=== PATIENT | male | born 1940 | race Caucasian/White ===

== ENCOUNTER 2017-04-14 06:12 | Inpatient (IN) | payer OTHER, MEDICARE ==
[2017-04-14] MEDS ORDERED: ONDANSETRON 4 MG/2 ML VIAL IVPUSH ONE (07:41)
[2017-04-14] MEDS ORDERED: SODIUM CHLORIDE 1,000 ML IV STA (07:41)
--- NOTE | 2017-04-14 07:41 | PDOC ---
History of Present Illness - General History Source: Patient Exam Limitations: No Limitations - History of Present Illness Initial Comments: 76 yo M no PMH presents with lower abdominal pain, multiple episodes of vomiting this morning. He states that he ate a burger last night, did not taste bad. No known sick contacts. Denies f/c, diarrhea. He has not had similar pain in the past. He has history of ruptured appendicitis, for which he had an appendectomy in the 1980s. No other surgeries. <Ingrid Conley - Last Filed: 04/14/17 19:53> <Little Yun - Last Filed: 04/14/17 20:20> - General Chief Complaint: Pain, Acute Stated Complaint: ABD PAIN, VOMITING Time Seen by Provider: 04/14/17 07:18 Past History - Surgical History Appendectomy: Yes - Psycho/Social/Smoking Cessation Hx Suicidal Ideation: No Smoking Status: No Smoking History: Never smoked Number of Cigarettes Smoked Daily: 0 <Ingrid Conley - Last Filed: 04/14/17 19:53> <Little Yun - Last Filed: 04/14/17 20:20> - Past Medical History Allergies/Adverse Reactions: Allergies Allergy/AdvReac Type Severity Reaction Status Date / Time No Known Allergies Allergy Verified 04/14/17 06:48 Home Medications: Ambulatory Orders No Home Medications 0 dose .ROUTE UTDICT 10/31/12 Levofloxacin [Levaquin] 750 mg PO DAILY #10 tablet 04/14/17 Metronidazole [Flagyl -] 500 mg PO TID #30 tablet 04/14/17 Ondansetron [Zofran -] 4 mg PO TID PRN #30 tablet 04/14/17 Review of Systems - Review of Systems Able to Perform ROS?: Yes Comments:: GENERAL/CONSTITUTIONAL: No fever or chills. No weakness. HEAD, EYES, EARS, NOSE AND THROAT: No change in vision. No ear pain or discharge. No sore throat. CARDIOVASCULAR: No chest pain or shortness of breath. RESPIRATORY: No cough, wheezing, or hemoptysis. GASTROINTESTINAL: No nausea, vomiting, diarrhea or constipation. GENITOURINARY: No dysuria, frequency, or change in urination. MUSCULOSKELETAL: No joint or muscle swelling or pain. No neck or back pain. SKIN: No rash NEUROLOGIC: No headache, vertigo, loss of consciousness, or change in strength/ sensation. ENDOCRINE: No increased thirst. No abnormal weight change. HEMATOLOGIC/LYMPHATIC: No anemia, easy bleeding, or history of blood clots. ALLERGIC/IMMUNOLOGIC: No hives or skin allergy. <Ingrid Conley - Last Filed: 04/14/17 19:53> *Physical Exam - Vital Signs Last Vital Signs Temp Pulse Resp BP Pulse Ox 98.1 F 71 22 160/93 100 04/14/17 06:49 04/14/17 06:49 04/14/17 06:49 04/14/17 06:49 04/14/17 06:49 - Physical Exam Comments: GENERAL: Awake, alert, and fully oriented, in no acute distress HEAD: No signs of trauma EYES: PERRLA, EOMI, sclera anicteric, conjunctiva clear ENT: Auricles normal inspection, hearing grossly normal, nares patent, oropharynx clear without exudates. Moist mucosa NECK: Normal ROM, supple, no lymphadenopathy, JVD, or masses LUNGS: Breath sounds equal, clear to auscultation bilaterally. No wheezes, and no crackles HEART: Regular rate and rhythm, normal S1 and S2, no murmurs, rubs or gallops ABDOMEN: Soft, minimal BLQ tenderness, normoactive bowel sounds. No guarding, no rebound. No masses EXTREMITIES: Normal range of motion, no edema. No clubbing or cyanosis. No cords, erythema, or tenderness NEUROLOGICAL: Cranial nerves II through XII grossly intact. Normal speech, normal gait SKIN: Warm, Dry, normal turgor, no rashes or lesions noted. <Ingrid Conley - Last Filed: 04/14/17 19:53> - Vital Signs Last Vital Signs Temp Pulse Resp BP Pulse Ox 98.1 F 71 22 160/93 100 04/14/17 06:49 04/14/17 06:49 04/14/17 06:49 04/14/17 06:49 04/14/17 06:49 <Little Yun - Last Filed: 04/14/17 20:20> ED Treatment Course - LABORATORY CBC & Chemistry Diagram: 04/14/17 08:08 04/14/17 08:08 <Ingrid Conley - Last Filed: 04/14/17 19:53> - LABORATORY CBC & Chemistry Diagram: 04/14/17 08:08 04/14/17 08:08 - ADDITIONAL ORDERS Additional order review: Laboratory Results 04/14/17 08:08 Sodium 142 Potassium 4.0 Chloride 102 Carbon Dioxide 30 Anion Gap 10 BUN 19 H Creatinine 1.1 Creat Clearance w eGFR > 60 Random Glucose 155 H Calcium 9.5 Total Bilirubin 0.7 AST 16 ALT 19 Alkaline Phosphatase 205 H Total Protein 7.4 Albumin 4.2 Lipase 78 04/14/17 08:08 RBC 5.40 MCV 82.7 MCHC 34.0 RDW 13.9 MPV 7.7 Neutrophils % 88.0 H Lymphocytes % 11.0 Basophils % 1.0 - RADIOLOGY Radiograph Interpretation: 04/14/17 12:35 EXAM: CT/ABDOMEN PELVIS CT WITH CONTR CT Interpreted by Dr. Roger Ochoa IMPRESSION: Acute diverticulitis, mild degree, involving distal descending colon with small amount of free fluid in the abdomen and pelvis , no free air is seen, no signs of abscess or drainable fluid collection identified , the presence of left inguinal hernia containing mesentery and vessel with no bowel content seen on reformations , hernia neck measuring up to 1.4 x 2.3 cm and hernia sac measuring up to 3.7 x 3.2 cm. Incidental findings of contiguous vertebral body lesions involving T11, T12 and L1 vertebra suspicious for unusual /atypical appearance of underlying hemangiomas within the vertebral bodies, recommend MRI thoracic spine attention to the lower thoracic spine from T11 through L1 with intravenous contrast. - Medications Given in the ED: ED Medications Discontinued Medications Generic Name Dose Route Start Last Admin Trade Name Freq PRN Reason Stop Dose Admin Sodium Chloride 1,000 mls @ 1,000 mls/hr 04/14/17 07:41 04/14/17 08:15 Normal Saline - IV 04/14/17 08:40 1,000 mls/hr ASDIR STA Administration Metronidazole 100 mls @ 100 mls/hr 04/14/17 11:27 04/14/17 11:46 Flagyl 500mg Premixed Ivpb - IVPB 04/14/17 12:26 100 mls/hr ONCE ONE Administration Ondansetron HCl 4 mg 04/14/17 07:41 04/14/17 08:15 Zofran Injection IVPUSH 04/14/17 07:42 4 mg ONCE ONE Administration <Little Yun - Last Filed: 04/14/17 20:20> Medical Decision Making - Medical Decision Making 04/14/17 12:56 Case d/w Dr. Benson via phone. She discussed with patient, who was initially intent on DC home. He agreed to stay for admission. He has received flagyl and levaquin for his diverticulitis. <Ingrid Conley - Last Filed: 04/14/17 19:53> - Medical Decision Making 04/14/17 12:[address] Benson 04/14/17 12:[address] Benson. Case was discussed. <Little Yun - Last Filed: 04/14/17 20:20> *DC/Admit/Observation/Transfer - Discharge Dispostion Admit: Yes <Ingrid Conley - Last Filed: 04/14/17 19:53> <Little Yun - Last Filed: 04/14/17 20:20> Diagnosis at time of Disposition: Diverticulitis Qualifiers: Diverticulitis site: unspecified part of intestinal tract Diverticulitis bleeding: without bleeding Diverticulitis complication: without perforation or abscess Qualified Code(s): K57.92 - Diverticulitis of intestine, part unspecified, without perforation or abscess without bleeding - Discharge Dispostion Condition at time of disposition: Stable - Prescriptions - Referrals - Patient Instructions
[2017-04-14] MEDS ORDERED: ONDANSETRON 4 MG/2 ML VIAL ONE (07:49)
[2017-04-14 08:16] LABS: MCH 28.1 pg (25.7-33.7); MEAN CELL VOLUME 82.7 fl (80-96); MEAN PLT VOLUME 7.7 fl (7.5-11.1); PLATELET COUNT 223 K/MM3 (134-434); RDW 13.9 % (11.9-15.9); WHITE BLOOD COUNT 11.6 K/mm3 (4.0-10.0)
[2017-04-14 08:46] LABS: ALBUMIN 4.2 g/dl (3.4-5.0); ALK PHOS 205 U/L (45-117); ANION GAP 10 (8-16); BILIRUBIN,TOTAL 0.7 mg/dL (0.2-1.0); CALCIUM 9.5 mg/dL (8.5-10.1); CO2 30 mmol/L (21-32); CREATININE 1.1 mg/dL (0.7-1.3); GLUCOSE,RANDOM 155 mg/dL (74-106); SGOT/AST 16 U/L (15-37); SGPT/ALT 19 U/L (12-78); TOT PROT 7.4 g/dl (6.4-8.2)
[2017-04-14 11:08] LABS: PLATELET ESTIMATE ADEQUATE (NORMAL)
[2017-04-14] MEDS ORDERED: LEVOFLOXACIN 750 MG IVPB 150 ML IVPB ONE ×2 (11:27→11:38)
[2017-04-14] MEDS ORDERED: METRONIDAZOLE 500 MG PREMIXED 100 ML IVPB ONE ×2 (11:27→11:39)
[2017-04-14 18:02] VITALS: BMI 24.9
--- NOTE | 2017-04-14 20:32 | CON.GI ---
Consult Consult Specialty:: gastroenterology Reason for Consultation:: abdominal pain - History of Present Illness History of Present Illness: 76 y/o male with no significant PMH was doing well untill yesterdaywhen he developed moderate suprapubic apin associated with nausea and vomiting after eating a burger. Tonight still has mild suprapubic pain, no nausea and no vomiting., no diarrhea and no recta bleeding He never had a colonoscopy. - Alcohol/Substance Use Hx Alcohol Use: No - Smoking History Smoking history: Never smoked Have you smoked in the past 12 months: No Aproximately how many cigarettes per day: 0 Home Medications - Allergies Allergies/Adverse Reactions: Allergies Allergy/AdvReac Type Severity Reaction Status Date / Time No Known Allergies Allergy Verified 04/14/17 06:48 - Home Medications Home Medications: Ambulatory Orders No Home Medications 0 dose .ROUTE UTDICT 10/31/12 Levofloxacin [Levaquin] 750 mg PO DAILY #10 tablet 04/14/17 Metronidazole [Flagyl -] 500 mg PO TID #30 tablet 04/14/17 Ondansetron [Zofran -] 4 mg PO TID PRN #30 tablet 04/14/17 Review of Systems - Review of Systems Constitutional: denies: Fever Eyes: denies: Blind Spots HENT: denies: Difficult Swallowing Neck: denies: Decreased ROM Cardiovascular: denies: Chest Pain Gastrointestinal: reports: Abdominal Pain. denies: Constipation, Diarrhea, Dysphagia, Indigestion, Melena, Nausea, Rectal Bleeding Physical Exam-GI Vital Signs: Vital Signs Temperature 98.4 F 04/14/17 17:52 Pulse Rate 71 04/14/17 17:52 Respiratory Rate 16 04/14/17 17:52 Blood Pressure 132/73 04/14/17 17:52 O2 Sat by Pulse Oximetry (%) 100 04/14/17 17:36 Constitutional: Yes: Well Nourished Eyes: Yes: Conjunctiva Clear Neck: Yes: Supple Cardiovascular: Yes: Regular Rate and Rhythm Respiratory: Yes: CTA Bilaterally ...Palpate: Yes: Soft, Tenderness (--suprapubic tenderness). No: Firm/Rigid, Guarding, Hepatomegaly, Mass, Pulsatile Mass, Splenomegaly Imaging - Results Cat Scan: Report Reviewed Problem List - Problems (1) Diverticulitis Assessment/Plan: R> contnue antibiotics IV hydration advance diet in am made aware to follow-up, for colonoscopy in 6 weeks Code(s): K57.92 - DVTRCLI OF INTEST, PART UNSP, W/O PERF OR ABSCESS W/O BLEED Qualifiers: Diverticulitis site: unspecified part of intestinal tract Diverticulitis bleeding: without bleeding Diverticulitis complication: without perforation or abscess Qualified Code(s): K57.92 - Diverticulitis of intestine, part unspecified, without perforation or abscess without bleeding (2) Inguinal hernia Assessment/Plan: surgical consultation Code(s): K40.90 - UNIL INGUINAL HERNIA, W/O OBST OR GANGR, NOT SPCF RECUR (3) Enlarged prostate Assessment/Plan: R> urology consult even as an outpatient Code(s): N40.0 - BENIGN PROSTATIC HYPERPLASIA WITHOUT LOWER URINRY TRACT SYMP
[2017-04-14] MEDS: DEXTROSE 5%-0.45% SALINE 1,000 ML IV SCH (20:52)
[2017-04-14] MEDS: METRONIDAZOLE 500 MG PREMIXED 100 ML IVPB SCH (20:55)
[2017-04-14] MEDS ORDERED: metroNIDAZOLE 250 MG TABLET PO SCH (22:00)
--- NOTE | 2017-04-15 00:11 | HP ---
Admitting History and Physical - Admission Chief Complaint: abdominal pain / nausea and vomiting for 24 hours History of Present Illness: 76 yo M no PMH presents with lower abdominal pain, multiple episodes of vomiting this morning. He states that he ate a burger last night, did not taste bad. No known sick contacts. Denies f/c, diarrhea. He has not had similar pain in the past. He has history of ruptured appendicitis, for which he had an appendectomy in the . No other surgeries. History Source: Patient Limitations to Obtaining History: No Limitations - Past Surgical History Past Surgical History: Yes: Appendectomy - Smoking History Smoking history: Never smoked Have you smoked in the past 12 months: No Aproximately how many cigarettes per day: 0 - Alcohol/Substance Use Hx Alcohol Use: No - Social History Usual Living Arrangement: Yes: With Spouse ADL: Independent History of Recent Travel: No Home Medications - Allergies Allergies/Adverse Reactions: Allergies Allergy/AdvReac Type Severity Reaction Status Date / Time No Known Allergies Allergy Verified 04/14/17 06:48 - Home Medications Home Medications: Ambulatory Orders No Home Medications 0 dose .ROUTE UTDICT 10/31/12 Levofloxacin [Levaquin] 750 mg PO DAILY #10 tablet 04/14/17 Metronidazole [Flagyl -] 500 mg PO TID #30 tablet 04/14/17 Ondansetron [Zofran -] 4 mg PO TID PRN #30 tablet 04/14/17 Review of Systems - Review of Systems Constitutional: reports: Loss of Appetite. denies: Chills, Diaphoresis, Fever Eyes: reports: No Symptoms HENT: reports: No Symptoms Neck: reports: No Symptoms Cardiovascular: reports: No Symptoms Respiratory: reports: No Symptoms Gastrointestinal: reports: Abdominal Pain (right lower quadrant), Nausea, Vomiting. denies: Indigestion, Melena, Rectal Bleeding, Vomiting Blood Genitourinary: reports: No Symptoms. denies: Burning, Dysuria, Flank Pain, Hematuria, Incontinence Breasts: reports: No Symptoms Reported Musculoskeletal: reports: No Symptoms Integumentary: reports: No Symptoms Neurological: reports: No Symptoms Endocrine: reports: No Symptoms Hematology/Lymphatic: reports: No Symptoms Psychiatric: reports: No Symptoms Physical Examination Vital Signs: Vital Signs Temperature 98.4 F 04/14/17 17:52 Pulse Rate 71 04/14/17 17:52 Respiratory Rate 16 04/14/17 21:00 Blood Pressure 132/73 04/14/17 17:52 O2 Sat by Pulse Oximetry (%) 100 04/14/17 21:00 Constitutional: Yes: Well Nourished, No Distress, Calm, Mild Distress Eyes: Yes: WNL HENT: Yes: WNL, Atraumatic, Normocephalic Neck: Yes: WNL Cardiovascular: Yes: WNL, Regular Rate and Rhythm Respiratory: Yes: Regular, CTA Bilaterally Gastrointestinal: Yes: Soft Renal/: Yes: WNL Breast(s): Yes: WNL Musculoskeletal: Yes: WNL Extremities: Yes: WNL Edema: No Peripheral Pulses WNL: Yes Integumentary: Yes: WNL Wound/Incision: Yes: Clean/Dry Neurological: Yes: WNL, Alert, Oriented ...Motor Strength: WNL Psychiatric: Yes: WNL, Alert, Oriented Imaging - Results Cat Scan: Report Reviewed Problem List - Problems (1) Diverticulitis Assessment/Plan: IV abx GI consult liquid diet Code(s): K57.92 - DVTRCLI OF INTEST, PART UNSP, W/O PERF OR ABSCESS W/O BLEED Qualifiers: Diverticulitis site: unspecified part of intestinal tract Diverticulitis bleeding: without bleeding Diverticulitis complication: without perforation or abscess Qualified Code(s): K57.92 - Diverticulitis of intestine, part unspecified, without perforation or abscess without bleeding (2) Enlarged prostate Code(s): N40.0 - BENIGN PROSTATIC HYPERPLASIA WITHOUT LOWER URINRY TRACT SYMP (3) Inguinal hernia Code(s): K40.90 - UNIL INGUINAL HERNIA, W/O OBST OR GANGR, NOT SPCF RECUR
[2017-04-15] MEDS: METRONIDAZOLE 500 MG PREMIXED 100 ML IVPB SCH ×4 (02:11→21:37)
[2017-04-15 07:57] LABS: MCH 28.3 pg (25.7-33.7); MEAN CELL VOLUME 83.4 fl (80-96); MEAN PLT VOLUME 7.3 fl (7.5-11.1); PLATELET COUNT 178 K/MM3 (134-434); RDW 13.9 % (11.9-15.9); WHITE BLOOD COUNT 8.3 K/mm3 (4.0-10.0)
[2017-04-15 08:27] LABS: ALBUMIN 3.4 g/dl (3.4-5.0); ALK PHOS 160 U/L (45-117); ANION GAP 9 (8-16); BILIRUBIN,TOTAL 0.7 mg/dL (0.2-1.0); CALCIUM 8.3 mg/dL (8.5-10.1); CO2 29 mmol/L (21-32); CREATININE 1.1 mg/dL (0.7-1.3); GLUCOSE,RANDOM 76 mg/dL (74-106); MAGNESIUM 2.4 mg/dL (1.8-2.4); PHOSPHOROUS 2.9 mg/dL (2.5-4.9); SGOT/AST 13 U/L (15-37); SGPT/ALT 14 U/L (12-78); TOT PROT 6.1 g/dl (6.4-8.2)
[2017-04-15] MEDS ORDERED: cefTRIAXone SODIUM 1 GM VIAL ONE (09:48)
[2017-04-15] MEDS ORDERED: DEXTROSE 5%-WATER - 50 ML IVPB ONE (09:49)
[2017-04-15] MEDS ORDERED: CEFTRIAXONE 1 GM in DEXTROSE 5%-WATER - 50 ML IVPB SCH (10:00)
[2017-04-15] MEDS: CEFTRIAXONE 1 GM in DEXTROSE 5%-WATER - 50 ML IVPB SCH (11:29)
[2017-04-15] MEDS: DEXTROSE 5%-0.45% SALINE 1,000 ML IV SCH (18:10)
--- NOTE | 2017-04-15 19:38 | PN ---
GI Progress Note Subjective: abdominal pain less, black stool and watery - Objective Vital Signs: Vital Signs Temperature 98.9 F 04/15/17 16:20 Pulse Rate 74 04/15/17 16:20 Respiratory Rate 20 04/15/17 16:20 Blood Pressure 129/90 04/15/17 16:20 O2 Sat by Pulse Oximetry (%) 99 04/15/17 09:00 Constitutional: Well Nourished Eyes: Yes: Conjunctiva Clear HENT: Yes: Atraumatic Neck: Yes: Supple Cardiovascular: Yes: Regular Rate and Rhythm Respiratory: Yes: CTA Bilaterally ...Palpate: Yes: Soft. No: Firm/Rigid, Guarding, Hepatomegaly, Mass, Pulsatile Mass, Splenomegaly, Tenderness Labs: CBC, BMP 04/15/17 06:00 04/15/17 06:00 Problem List - Problems (1) Diverticulitis Assessment/Plan: --resolving Code(s): K57.92 - DVTRCLI OF INTEST, PART UNSP, W/O PERF OR ABSCESS W/O BLEED Qualifiers: Diverticulitis site: unspecified part of intestinal tract Diverticulitis bleeding: without bleeding Diverticulitis complication: without perforation or abscess Qualified Code(s): K57.92 - Diverticulitis of intestine, part unspecified, without perforation or abscess without bleeding (2) Inguinal hernia Code(s): K40.90 - UNIL INGUINAL HERNIA, W/O OBST OR GANGR, NOT SPCF RECUR (3) Enlarged prostate Code(s): N40.0 - BENIGN PROSTATIC HYPERPLASIA WITHOUT LOWER URINRY TRACT SYMP
[2017-04-16] MEDS: METRONIDAZOLE 500 MG PREMIXED 100 ML IVPB SCH ×2 (02:45→09:16)
[2017-04-16] MEDS ORDERED: cefTRIAXone SODIUM 1 GM VIAL ONE (10:54)
[2017-04-16] MEDS ORDERED: DEXTROSE 5%-WATER - 50 ML IVPB ONE (10:55)
[2017-04-16] MEDS: CEFTRIAXONE 1 GM in DEXTROSE 5%-WATER - 50 ML IVPB SCH (10:57)
[2017-04-16 13:00] LABS: MCH 27.8 pg (25.7-33.7); MCHC 33.5 g/dl (32.0-35.9); MEAN CELL VOLUME 82.8 fl (80-96); MEAN PLT VOLUME 7.3 fl (7.5-11.1); PLATELET COUNT 186 K/MM3 (134-434); RDW 13.7 % (11.9-15.9); WHITE BLOOD COUNT 7.8 K/mm3 (4.0-10.0)
[2017-04-16 13:40] LABS: ALBUMIN 3.4 g/dl (3.4-5.0); ANION GAP 9 (8-16); BILIRUBIN,TOTAL 0.5 mg/dL (0.2-1.0); CALCIUM 8.5 mg/dL (8.5-10.1); CO2 29 mmol/L (21-32); GLUCOSE,RANDOM 112 mg/dL (74-106); SGOT/AST 14 U/L (15-37); SGPT/ALT 14 U/L (12-78)
[2017-04-16 13:41] LABS: ALK PHOS 167 U/L (45-117); TOT PROT 6.1 g/dl (6.4-8.2)
[2017-04-16 15:06] VITALS: BP 147/83; PULSE 61; TEMP 98.7
== END 2017-04-16 15:31 | disposition home or self-care (01) | DRG 392 ==
LOC: JER 06:12 → JERBED 12:56 → J8W 15:16
PROVIDERS: ADMIT Family Medicine; ATTEND Family Medicine
DX: K57.32 Diverticulitis of large intestine without perforation or abscess without bleeding (principal); K40.90 Unilateral inguinal hernia, without obstruction or gangrene, not specified as recurrent; N40.0 Benign prostatic hyperplasia without lower urinary tract symptoms; R11.2 Nausea with vomiting, unspecified
CPT/HCPCS: 36415; 74177-TC; 80053; 82272; 83690; 83735; 84100; 85025; 85027; 87324; 87449; 99283-25; Q9967

== ENCOUNTER 2017-07-23 14:39 | Emergency (ER) | payer OTHER, MEDICARE ==
[2017-07-23 14:47] VITALS: TEMP 97.5; BMI 24.0
--- NOTE | 2017-07-23 15:55 | PDOC ---
History of Present Illness - General Chief Complaint: Lightheaded Stated Complaint: HIGH BLOOD PRESSURE,WEAKNESS Time Seen by Provider: 07/23/17 14:58 History Source: Patient Exam Limitations: No Limitations - History of Present Illness Initial Comments: 07/23/17 15:02 77-year-old male with recent diagnosis of hypertension presents the ED with complaints of lightheadedness elevated BP. Patient states was seen by the ad clerk yesterday was told to take Court 25 mg but instead took 6.25 mg with complaints of symptoms above. Patient has no complaints of headache, visual changes, nausea, abdominal pain, chest pain or shortness of breath. Timing/Duration: constant Severity: mild Associated Symptoms: denies: headaches Past History - Travel Traveled outside of the country in the last 30 days: No Close contact w/someone who was outside of country & ill: No - Past Medical History Allergies/Adverse Reactions: Allergies Allergy/AdvReac Type Severity Reaction Status Date / Time No Known Allergies Allergy Verified 07/23/17 14:44 Home Medications: Ambulatory Orders No Home Medications 0 dose .ROUTE UTDICT 10/31/12 Carvedilol [Coreg -] 12.5 mg PO BID #60 tablet 07/23/17 GI Disorders: Yes (diverticulitis) - Surgical History Appendectomy: Yes - Suicide/Smoking/Psychosocial Hx Smoking Status: No Smoking History: Never smoked Have you smoked in the past 12 months: No Number of Cigarettes Smoked Daily: 0 Information on smoking cessation initiated: No Hx Alcohol Use: No Drug/Substance Use Hx: No Substance Use Type: None Hx Substance Use Treatment: No Patient Lives Alone: No Lives with/in: spouse/SO Review of Systems - Review of Systems Able to Perform ROS?: Yes Constitutional: No: Symptoms Reported HEENTM: No: Symptoms Reported Respiratory: No: Symptoms reported Cardiac (ROS): Yes: Lightheadedness : No: Symptoms Reported Musculoskeletal: No: Symptoms Reported Integumentary: No: Symptoms Reported Neurological: Yes: Dizziness. No: Headache, Numbness, Weakness Hematologic/Lymphatic: No: Symptoms Reported *Physical Exam - Vital Signs Last Vital Signs Temp Pulse Resp BP Pulse Ox 97.5 F L 62 18 179/93 100 07/23/17 14:45 07/23/17 14:45 07/23/17 14:45 07/23/17 14:45 07/23/17 14:45 - Physical Exam General Appearance: Yes: Nourished, Appropriately Dressed. No: Apparent Distress HEENT: positive: EOMI, CHIQUI. negative: Pale Conjunctivae Neck: positive: Supple Respiratory/Chest: positive: Lungs Clear, Normal Breath Sounds. negative: Respiratory Distress, Accessory Muscle Use Cardiovascular: positive: Regular Rhythm, Regular Rate. negative: Murmur Gastrointestinal/Abdominal: positive: Soft. negative: Tenderness Extremity: positive: Normal Capillary Refill. negative: Pedal Edema Integumentary: positive: Normal Color, Warm, Moist Neurologic: positive: Normal Mood/Affect, Motor Strength 5/5 (ambulatory) ED Treatment Course - LABORATORY CBC & Chemistry Diagram: 07/23/17 16:21 07/23/17 16:21 Medical Decision Making - Medical Decision Making 07/23/17 16:57 Pt with c/o lightheaded and elevated bp. Pt recently dx'd with htn and took coreg 6.25 mg this am . Pt arrived with a BP 155/95. Pt otherwise with normal exam. Labs, ua, ekg, cxr, and heat ct ordered. Call placed to Dr. Benson 07/23/17 17:55 Laboratory Tests 07/23/17 07/23/17 07/23/17 16:21 16:21 16:21 WBC 11.0 H D Hgb 14.9 D Hct 44.0 Plt Count 242 D Neutrophils % 88.6 H Monocytes % 1.7 L Sodium 138 Potassium 4.4 D Chloride 101 Carbon Dioxide 29 Anion Gap 8 BUN 13 D Creatinine 0.9 Creat Clearance w eGFR > 60 Random Glucose 115 H Calcium 9.4 Total Bilirubin 0.6 AST 17 D ALT 17 D Alkaline Phosphatase 200 H Creatine Kinase 60 Troponin I < 0.02 Urine Protein 1+ H Urine Ketones 2+ H Urine Blood 1+ H Urine Nitrite Negative Urine Urobilinogen Negative CT and chest x-ray negative for acute findings. Patient spoken directly to Dr. Benson who recommended Coreg 12.5 by mouth twice a day. Patient also recommended to drink more fluids 07/25/17 18:01 *DC/Admit/Observation/Transfer Diagnosis at time of Disposition: Lightheadedness - Discharge Dispostion Disposition: HOME Condition at time of disposition: Good - Prescriptions Prescriptions: Carvedilol [Coreg -] 12.5 mg PO BID #60 tablet - Referrals Referrals: Tressa Benson MD [Primary Care Provider] - - Patient Instructions Printed Discharge Instructions: Diverticular Disease (Alternative Therapy), Recommendations to Help Prevent High Blood Pressure, Eating Well -- and Safely - - During Your [place] Years Additional Instructions: At this time your lab work and imaging had no acute findings and as agreed with Dr. Benson to take Coreg 12.5 by mouth twice a day. As per my recommendations please eat small frequent meals throughout the day staying well-hydrated. Print Language: HEBREW
[2017-07-23 16:56] LABS: BASOPHIL 0.5 % (0-2.0); EOSINOPHIL 0.1 % (0-4.5); MCH 28.1 pg (25.7-33.7); MCHC 33.9 g/dl (32.0-35.9); MEAN CELL VOLUME 83.1 fl (80-96); MEAN PLT VOLUME 7.9 fl (7.5-11.1); NEUTROPHILS 88.6 % (42.8-82.8); PLATELET COUNT 242 K/MM3 (134-434); RDW 13.6 % (11.9-15.9)
[2017-07-23 16:57] LABS: URINE APPEARANCE CLEAR; URINE BILIRUBIN NEGATIVE (NEGATIVE); URINE BLOOD 1+ (NEGATIVE); URINE COLOR YELLOW; URINE GLUCOSE (UA) NEGATIVE (NEGATIVE); URINE KETONE 2+ (NEGATIVE); URINE NITRITE NEGATIVE (NEGATIVE); URINE UROBILINOGEN NEGATIVE mg/dL (0.2-1.0)
[2017-07-23 17:08] LABS: URINE PROTEIN 1+ (NEGATIVE)
[2017-07-23 17:18] LABS: ALBUMIN 3.9 g/dl (3.4-5.0); ANION GAP 8 (8-16); BILIRUBIN,TOTAL 0.6 mg/dL (0.2-1.0); CALCIUM 9.4 mg/dL (8.5-10.1); CO2 29 mmol/L (21-32); CREATININE 0.9 mg/dL (0.7-1.3); GLUCOSE,RANDOM 115 mg/dL (74-106); SGPT/ALT 17 U/L (12-78); TOT PROT 7.2 g/dl (6.4-8.2)
[2017-07-23 17:20] LABS: ALK PHOS 200 U/L (45-117); CPK 60 IU/L (39-308); TROPONIN I < 0.02 ng/ml (0.00-0.05)
[2017-07-23 17:21] LABS: SGOT/AST 17 U/L (15-37)
[2017-07-23 17:44] LABS: URINE BACTERIA RARE /hpf (NONE SEEN); URINE MUCUS RARE; URINE RBC 4 /hpf (0-3); URINE WBC 1 /hpf (3-5)
[2017-07-23 18:25] VITALS: BP 166/106; PULSE 67
[2017-07-23 19:07] LABS: URINE LEUK ESTERASE Negative (NEGATIVE)
--- NOTE | 2017-07-24 12:47 | EKG ---
Test Reason : Blood Pressure : / mmHG Vent. Rate : 064 BPM Atrial Rate : 064 BPM P-R Int : 204 ms QRS Dur : 090 ms QT Int : 438 ms P-R-T Axes : 016 060 032 degrees QTc Int : 451 ms SINUS RHYTHM WITH PREMATURE ATRIAL COMPLEXES OTHERWISE NORMAL ECG NO PREVIOUS ECGS AVAILABLE Confirmed by LUCÍA ORTIZ MD ([id number]) on 07/24/2017 12:46:54 PM Referred By: Confirmed By:LUCÍA ORTIZ MD
== END 2017-07-23 18:30 | disposition home or self-care (01) ==
LOC: JER 14:39
DX: R42 Dizziness and giddiness (principal); I10 Essential (primary) hypertension
CPT/HCPCS: 36415; 70450-TC; 71010-TC; 80053; 81003; 81015; 82550; 84484; 85025; 93005; 93010; 99283-25